=== PATIENT | male | born 1940 | race Caucasian/White ===

== ENCOUNTER → 2016-12-25 08:42 | Outpatient (CLI) | payer OTHER | END | disposition home or self-care (01) | LOC: D.NM 08:42 | DX: E21.3 Hyperparathyroidism, unspecified (principal) ==

== ENCOUNTER 2017-01-22 05:26 | Day surgery (SDC) | payer OTHER ==
[2017-01-21 11:43] LABS: BASOPHILS 0.2 % (0-2); EOSINOPHILS 2.8 % (0-7); HEMATOCRIT 36.1 % (42.0-54.0); HEMOGLOBIN 11.7 g/dL (13.5-17.5); IMMATURE GRANULOCYTES 0.2 % (0-5); LYMPHOCYTES 17.4 % (15-50); MCH 31.5 pg (26.0-34.0); MCHC 32.4 g/dL (31.0-37.0); MCV 97.3 fL (80.0-100.0); MEAN PLATELET VOLUME 10.1 fL (7.4-10.4); MONOCYTES 8.2 % (2-11); NEUTROPHILS 71.2 % (40-80); PLATELET COUNT 183 10x3/uL (130-400); RBC 3.71 10x6/uL (4.20-6.10); RDW 13.3 % (11.5-14.5); WBC 9.7 10x3/uL (4.8-10.8)
[2017-01-21 12:17] LABS: ANION GAP 13.9 mmol/L (8-16); CALCIUM 10.6 mg/dL (8.5-10.1); CARBON DIOXIDE 27.5 mmol/L (21.0-32.0); CREATININE - SERUM 1.1 mg/dL (0.6-1.3); POTASSIUM - SERUM 4.4 mmol/L (3.5-5.1)
[~2017-01-22 05:26] MED LIST: ASCORBIC ACID500 MG PO; CRESTOR20 MG PO; NIASPAN1000 MG PO; POTASSIUM99 M1 PO; PRINIVIL20 MG PO; VITAMIN A10000 UNIT PO; VITAMIN D3400 UNI1 PO; VITAMIN E100 UNIT PO
[2017-01-22] MEDS ORDERED: BAYER CHEWABLE81 MG PO (08:09)
[2017-01-22 08:36] VITALS: BP 95/54; BMI 37.0
[2017-01-22] MEDS ORDERED: HYDROCODONE-APA1 TAB PO (12:11)
--- NOTE | 2017-01-22 15:22 | NUR ---
1500 IV DC WITH CATHER TIP INTACT
--- NOTE | 2017-01-29 12:36 | OP ---
PATIENT NAME: MAME ASKEW MEDICAL RECORD: [id number] :40 LOCATION:D[facility]OPS ADMISSION DATE: SURGEON: CUBA POTTS MD DATE OF OPERATION: 01/22/2017 PREOPERATIVE DIAGNOSES: 1. Hypercalcemia. 2. Hyperparathyroidism. 3. Hyperlipidemia. 4. Coronary artery disease. 5. Hypertension. POSTOPERATIVE DIAGNOSES: 1. Hypercalcemia. 2. Hyperparathyroidism. 3. Hyperlipidemia. 4. Coronary artery disease. 5. Hypertension. PROCEDURE: Right parathyroid adenectomy. SURGEON: Cuba Potts MD REPORT OF PROCEDURE: The patient's neck was prepped and draped in sterile fashion. A transverse incision was made through a skin fold in the inferior neck. Electrocautery was used to dissect through the subcutaneous tissues and platysma until we encountered the strap muscles. The median raphe was opened up and we entered the space over the trachea. We dissected down and was able to find the patient's thyroid gland. We dissected the thyroid gland and was able to rotate it medially after we had taken down some of its lateral attachments and also some of its vascular supply. This was done using clips and 3-0 silk ties. We eventually were able to dissect down through some fatty tissue in the neck and near the tracheoesophageal groove, we were able to find an enlarged parathyroid gland. This was dissected from the surrounding tissues and its blood supply was tied off with 2-0 silk tie. We sent the specimen off for frozen and it came back as parathyroid gland with adenomatous changes. The wound was then irrigated out with normal saline and we inspected to see if we could find the superior parathyroid gland. I was never able to find this definitively, but I did not see any other parathyroid tissue. We went ahead and lined the area around the thyroid in our dissection planes with thrombin-soaked Gelfoam. The strap muscles were then reapproximated with running 2-0 Vicryl. The platysma was closed with interrupted 3-0 Vicryl and the skin was closed with running subcutaneous 5-0 Monocryl. A total of 10 mL of 0.25% Marcaine with epinephrine was infused into the surrounding tissues, and the wound was dressed appropriately. COMPLICATIONS: None. CONDITION: Stable. ANESTHESIA: General endotracheal and local. BLOOD LOSS: Minimal. TRANSINT:[id number] Voice Confirmation ID: [id number] DOCUMENT ID: [id number] OPERATIVE REPORT [id number] MAME ASKEW CHRISTIAN MD at 1236 CC: LEAH BEAVER MD [id number] DICTATION DATE: 01/22/17 1219 TIME STUDY OBSERVER: 01/22/17 1403 DEP SD 01/22/17 [place] [id number] [place] [id number]
== END 2017-01-22 15:00 | disposition home or self-care (01) ==
LOC: D.OPS 05:26
PROVIDERS: Surgery
DX: E21.3 Hyperparathyroidism, unspecified (principal); E78.5 Hyperlipidemia, unspecified; I10 Essential (primary) hypertension; Z01.812 Encounter for preprocedural laboratory examination